=== PATIENT | female | born 2005 | race Caucasian/White ===

== ENCOUNTER 2024-01-19 09:49 | Emergency (ER) | payer SELFPAY ==
[~2024-01-19] VITALS: Ht 165.1 cm; Wt 50.0 kg
[2024-01-19 10:01] VITALS: TEMP 97.8
[2024-01-19 11:11] VITALS: BP 97/62; PULSE 60
== END 2024-01-19 11:10 | disposition home or self-care (01) ==
LOC: COL.ER 09:49
DX: Z71.1 Person with feared health complaint in whom no diagnosis is made (principal)